=== PATIENT | male | born 1990 | race Caucasian/White ===

== ENCOUNTER → 2019-04-08 | Outpatient (CLI) | payer OTHER | END | disposition home or self-care (01) | LOC: CFH 15:11 | PROVIDERS: ATTEND Internal Medicine Cardiovascular Disease | CPT/HCPCS: 93306 ==

== ENCOUNTER → 2019-11-10 | Outpatient (CLI) | payer OTHER | END | disposition home or self-care (01) | LOC: CVU 13:53 | PROVIDERS: ATTEND Internal Medicine Cardiovascular Disease | DX: I51.7 Cardiomegaly (principal); I42.0 Dilated cardiomyopathy; I50.33 Acute on chronic diastolic (congestive) heart failure | CPT/HCPCS: 93306; 93356 ==